=== PATIENT | male | born 1990 | race Caucasian/White ===

== ENCOUNTER 2021-04-05 14:53 | Emergency (ER) | payer BC ==
[2021-04-05 17:13] LABS: CORONAVIRUS COVID-19 NAA POSITIVE (NEGATIVE)
[2021-04-05] MEDS ORDERED: Sodium Chloride 0.9% 10 ML Syringe FLUSH PRN (17:14)
[2021-04-05] MEDS ORDERED: diphenhydrAMINE 50 MG/ML SDV IVPUSH PRN ×2 (17:51→18:23)
[2021-04-05] MEDS ORDERED: Famotidine 20 MG/2 ML SDV IVPUSH PRN ×2 (17:51→18:23)
[2021-04-05] MEDS ORDERED: EPINEPHrine 1 MG/ML SDV IM PRN ×2 (17:51→18:23)
[2021-04-05] MEDS ORDERED: methylPREDNISolone Sodium Succinate 125 MG/2 ML SDV IVPUSH PRN ×2 (17:51→18:23)
--- NOTE | 2021-04-05 17:57 | EDM.PDOC ---
ED HPI GENERAL MEDICAL PROBLEM - General Chief Complaint: Respiratory Problem Stated Complaint: COVID SYMPTOMS Time Seen by Provider: 04/05/21 16:07 Source of Information: Reports: Patient History Limitations: Reports: No Limitations - History of Present Illness INITIAL COMMENTS - FREE TEXT/NARRATIVE: 30-year-old male presents the emergency department with a 3-day history of wea kness, fatigue and dizziness as well as diarrhea. Patient is requesting to be tested for Covid. States he does have a history of hypertension. States he was a pack-a-day smoker for approximately 15 years. He then stopped smoking and has been vaping for the past 5 years. States he is otherwise healthy. [ End ] Generalized Pain Score (Numeric/FACES): 4 - Related Data Allergies Allergy/AdvReac Type Severity Reaction Status Date / Time No Known Allergies Allergy Verified 04/05/21 16:33 Home Meds: Home Meds . [No Known Home Meds] 04/05/21 [History] Past Medical History Cardiovascular History: Reports: Hypertension Social & Family History - Tobacco Use Tobacco Use Status *Q: Current Every Day Tobacco User Years of Tobacco use: 15 Packs/Tins Daily: 1 - Caffeine Use Caffeine Use: Reports: Coffee, Energy Drinks, Soda - Recreational Drug Use Recreational Drug Use: No ED ROS GENERAL - Review of Systems Review Of Systems: Comprehensive ROS is negative, except as noted in HPI. ED EXAM, GENERAL - Physical Exam Exam: See Below Exam Limited By: No Limitations General Appearance: Alert, WD/WN, No Apparent Distress Ears: Normal External Exam, Hearing Grossly Normal Nose: Normal Inspection Throat/Mouth: Normal Inspection, Normal Lips, Normal Voice, No Airway Compromise Head: Atraumatic Neck: Normal Inspection, Supple Respiratory/Chest: No Respiratory Distress, Lungs Clear, Normal Breath Sounds, No Accessory Muscle Use, Chest Non-Tender Cardiovascular: Normal Peripheral Pulses, Regular Rate, Rhythm, No Edema, No Murmur Peripheral Pulses: 2+: Radial (L), Radial (R) GI/Abdominal: Normal Bowel Sounds, Soft, Non-Tender, No Distention (Male) Exam: Deferred Rectal (Males) Exam: Deferred Back Exam: Normal Inspection Extremities: Normal Inspection, Normal Range of Motion, Non-Tender, No Pedal Edema, Normal Capillary Refill Neurological: Alert, Oriented, Normal Cognition Psychiatric: Normal Affect, Normal Mood Skin Exam: Warm, Dry, Intact, Normal Color, No Rash Lymphatic: No Adenopathy Course - Vital Signs Text/Narrative:: Physical exam is essentially unremarkable. Patient is hemodynamically stable with O2 saturations at 98% on room air. Will obtain a Covid swab. Last Recorded V/S: Last Vital Signs Temp 98.1 F 04/05/21 16:31 Pulse 89 04/05/21 16:31 Resp 20 04/05/21 16:31 BP 178/95 H 04/05/21 16:31 Pulse Ox 98 04/05/21 16:31 - Orders/Labs/Meds Orders: Active Orders 24 hr Category Date Time Status Vital Signs [RC] Q15M Care 04/05/21 17:51 Active Vital Signs [RC] Q15M Care 04/05/21 18:24 Active Chest 1V Frontal [CR] Stat Exams 04/05/21 17:14 Taken EPINEPHrine [Adrenalin] Med 04/05/21 17:51 Active 0.3 mg IM ASDIRECTED PRN EPINEPHrine [Adrenalin] Med 04/05/21 18:23 Active 0.3 mg IM ASDIRECTED PRN Famotidine [Pepcid] Med 04/05/21 17:51 Active 20 mg IVPUSH ASDIRECTED PRN Famotidine [Pepcid] Med 04/05/21 18:23 Active 20 mg IVPUSH ASDIRECTED PRN Sodium Chloride 0.9% [Saline Flush] Med 04/05/21 17:14 Active 10 ml FLUSH ASDIRECTED PRN Sodium Chloride 0.9% [Saline Flush] Med 04/05/21 18:00 Active 30 ml FLUSH ASDIRECTED Sodium Chloride 0.9% [Saline Flush] Med 04/05/21 18:30 Active 30 ml FLUSH ASDIRECTED diphenhydrAMINE [Benadryl] Med 04/05/21 17:51 Active 50 mg IVPUSH ASDIRECTED PRN diphenhydrAMINE [Benadryl] Med 04/05/21 18:23 Active 50 mg IVPUSH ASDIRECTED PRN methylPREDNISolone Sod Succ [Solu-MEDROL] Med 04/05/21 17:51 Active 125 mg IVPUSH ASDIRECTED PRN methylPREDNISolone Sod Succ [Solu-MEDROL] Med 04/05/21 18:23 Active 125 mg IVPUSH ASDIRECTED PRN Saline Lock Insert [OM.PC] Stat Ot 04/05/21 17:14 Ordered Medication Orders Diphenhydramine HCl (Diphenhydramine 50 Mg/Ml Sdv) 50 mg IVPUSH ASDIRECTED PRN PRN Reason: hypersensitivity reaction Diphenhydramine HCl (Diphenhydramine 50 Mg/Ml Sdv) 50 mg IVPUSH ASDIRECTED PRN PRN Reason: hypersensitivity reaction Epinephrine HCl (Epinephrine 1 Mg/Ml Sdv) 0.3 mg IM ASDIRECTED PRN PRN Reason: hypersensitivity reaction Epinephrine HCl (Epinephrine 1 Mg/Ml Sdv) 0.3 mg IM ASDIRECTED PRN PRN Reason: hypersensitivity reaction Famotidine (Famotidine 20 Mg/2 Ml Sdv) 20 mg IVPUSH ASDIRECTED PRN PRN Reason: hypersensitivity reaction Famotidine (Famotidine 20 Mg/2 Ml Sdv) 20 mg IVPUSH ASDIRECTED PRN PRN Reason: hypersensitivity reaction Methylprednisolone Sodium Succinate (Methylprednisolone Sodium Succinate 125 Mg/2 Ml Sdv) 125 mg IVPUSH ASDIRECTED PRN PRN Reason: hypersensitivity reaction Methylprednisolone Sodium Succinate (Methylprednisolone Sodium Succinate 125 Mg/2 Ml Sdv) 125 mg IVPUSH ASDIRECTED PRN PRN Reason: hypersensitivity reaction Sodium Chloride (Sodium Chloride 0.9% 10 Ml Syringe) 10 ml FLUSH ASDIRECTED PRN PRN Reason: Keep Vein Open Last Admin: 04/05/21 17:16 Dose: 10 ml Documented by: NELIA Sodium Chloride (Sodium Chloride 0.9% 10 Ml Syringe) 30 ml FLUSH ASDIRECTED [facility] Sodium Chloride (Sodium Chloride 0.9% 10 Ml Syringe) 30 ml FLUSH ASDIRECTED SERENA Labs: Laboratory Tests 04/05/21 04/05/21 04/05/21 Range/Units 16:25 16:44 16:44 WBC 6.50 (4.23-9.07) K/mm3 RBC 5.01 (4.63-6.08) M/mm3 Hgb 15.5 (13.7-17.5) gm/dl Hct 46.1 (40.1-51.0) % MCV 92.0 (79.0-92.2) fl MCH 30.9 (25.7-32.2) pg MCHC 33.6 (32.2-35.5) g/dl RDW Std Deviation 42.5 (35.1-43.9) fL Plt Count 242 (163-337) K/mm3 MPV 10.8 (9.4-12.3) fl Neut % (Auto) 53.5 (34.0-67.9) % Lymph % (Auto) 13.7 L (21.8-53.1) % [place] % (Auto) 31.1 H (5.3-12.2) % Eos % (Auto) 0.3 L (0.8-7.0) Baso % (Auto) 0.9 (0.1-1.2) % Neut # (Auto) 3.48 (1.78-5.38) K/mm3 Lymph # (Auto) 0.89 L (1.32-3.57) K/mm3 [place] # (Auto) 2.02 H (0.30-0.82) K/mm3 Eos # (Auto) 0.02 L (0.04-0.54) K/mm3 Baso # (Auto) 0.06 (0.01-0.08) K/mm3 Manual Slide Review D-Dimer, Quantitative 0.36 (0.19-0.50) mg/L Sodium (136-145) mEq/L Potassium (3.5-5.1) mEq/L Chloride (98-107) mEq/L Carbon Dioxide (21-32) mEq/L Anion Gap (5-15) BUN (7-18) mg/dL Creatinine (0.7-1.3) mg/dL Est Cr Clr Drug Dosing mL/min Estimated GFR (MDRD) (>60) mL/min BUN/Creatinine Ratio (14-18) Glucose (70-99) mg/dL Calcium (8.5-10.1) mg/dL Magnesium (1.8-2.4) mg/dL Total Bilirubin (0.2-1.0) mg/dL AST (15-37) U/L ALT (16-63) U/L Alkaline Phosphatase (46-116) U/L C-Reactive Protein (<1.0) mg/dL Total Protein (6.4-8.2) g/dl Albumin (3.4-5.0) g/dl Globulin gm/dL Albumin/Globulin Ratio (1-2) Influenza Type A RNA Negative (NEGATIVE) Influenza Type B RNA Negative (NEGATIVE) SARS-CoV-2 RNA (GRACIE) Positive H (NEGATIVE) 04/05/21 Range/Units 16:44 WBC (4.23-9.07) K/mm3 RBC (4.63-6.08) M/mm3 Hgb (13.7-17.5) gm/dl Hct (40.1-51.0) % MCV (79.0-92.2) fl MCH (25.7-32.2) pg MCHC (32.2-35.5) g/dl RDW Std Deviation (35.1-43.9) fL Plt Count (163-337) K/mm3 MPV (9.4-12.3) fl Neut % (Auto) (34.0-67.9) % Lymph % (Auto) (21.8-53.1) % [place] % (Auto) (5.3-12.2) % Eos % (Auto) (0.8-7.0) Baso % (Auto) (0.1-1.2) % Neut # (Auto) (1.78-5.38) K/mm3 Lymph # (Auto) (1.32-3.57) K/mm3 [place] # (Auto) (0.30-0.82) K/mm3 Eos # (Auto) (0.04-0.54) K/mm3 Baso # (Auto) (0.01-0.08) K/mm3 Manual Slide Review D-Dimer, Quantitative (0.19-0.50) mg/L Sodium 135 L (136-145) mEq/L Potassium 3.9 (3.5-5.1) mEq/L Chloride 100 (98-107) mEq/L Carbon Dioxide 26 (21-32) mEq/L Anion Gap 12.9 (5-15) BUN 10 (7-18) mg/dL Creatinine 1.0 (0.7-1.3) mg/dL Est Cr Clr Drug Dosing 116.40 mL/min Estimated GFR (MDRD) > 60 (>60) mL/min BUN/Creatinine Ratio 10.0 L (14-18) Glucose 188 H (70-99) mg/dL Calcium 8.4 L (8.5-10.1) mg/dL Magnesium 1.9 (1.8-2.4) mg/dL Total Bilirubin 0.4 (0.2-1.0) mg/dL AST 65 H (15-37) U/L ALT 112 H (16-63) U/L Alkaline Phosphatase 73 (46-116) U/L C-Reactive Protein 0.3 (<1.0) mg/dL Total Protein 8.1 (6.4-8.2) g/dl Albumin 3.7 (3.4-5.0) g/dl Globulin 4.4 gm/dL Albumin/Globulin Ratio 0.8 L (1-2) Influenza Type A RNA (NEGATIVE) Influenza Type B RNA (NEGATIVE) SARS-CoV-2 RNA (GRACIE) (NEGATIVE) Meds: Medications Generic Name Dose Route Start Last Admin Trade Name Freq PRN Reason Stop Dose Admin Diphenhydramine HCl 50 mg 04/05/21 17:51 Diphenhydramine 50 Mg/Ml Sdv IVPUSH ASDIRECTED PRN hypersensitivity reaction Diphenhydramine HCl 50 mg 04/05/21 18:23 Diphenhydramine 50 Mg/Ml Sdv IVPUSH ASDIRECTED PRN hypersensitivity reaction Epinephrine HCl 0.3 mg 04/05/21 17:51 Epinephrine 1 Mg/Ml Sdv IM ASDIRECTED PRN hypersensitivity reaction Epinephrine HCl 0.3 mg 04/05/21 18:23 Epinephrine 1 Mg/Ml Sdv IM ASDIRECTED PRN hypersensitivity reaction Famotidine 20 mg 04/05/21 17:51 Famotidine 20 Mg/2 Ml Sdv IVPUSH ASDIRECTED PRN hypersensitivity reaction Famotidine 20 mg 04/05/21 18:23 Famotidine 20 Mg/2 Ml Sdv IVPUSH ASDIRECTED PRN hypersensitivity reaction Methylprednisolone Sodium Succinate 125 mg 04/05/21 17:51 Methylprednisolone Sodium Succinate 125 Mg/2 Ml Sdv IVPUSH ASDIRECTED PRN hypersensitivity reaction Methylprednisolone Sodium Succinate 125 mg 04/05/21 18:23 Methylprednisolone Sodium Succinate 125 Mg/2 Ml Sdv IVPUSH ASDIRECTED PRN hypersensitivity reaction Sodium Chloride 10 ml 04/05/21 17:14 04/05/21 17:16 Sodium Chloride 0.9% 10 Ml Syringe FLUSH 10 ml ASDIRECTED PRN Administration Keep Vein Open Sodium Chloride 30 ml 04/05/21 18:00 Sodium Chloride 0.9% 10 Ml Syringe FLUSH ASDIRECTED SERENA Sodium Chloride 30 ml 04/05/21 18:30 Sodium Chloride 0.9% 10 Ml Syringe FLUSH ASDIRECTED [facility] Discontinued Medications Generic Name Dose Route Start Last Admin Trade Name Surya PRN Reason Stop Dose Admin CASIRIVIMAB/IMDEVIMAB 10 ml/ 110 mls @ 220 mls/hr 04/05/21 18:23 04/05/21 18:40 Sodium Chloride IV 04/05/21 18:52 220 mls/hr ONETIME ONE Administration - Radiology Interpretation Free Text/Narrative:: Nothing acute is appreciated on portable chest x-ray. - Re-Assessments/Exams Free Text/Narrative Re-Assessment/Exam: 04/05/2021 16:25 Covid test is positive will obtain lab studies and a chest x-ray. 04/05/21 17:50 Hematology is essentially unremarkable D-dimer 0.36 Sodium 135, potassium 3.9, anion gap 12.9, BUN 10, creatinine 1.0, GFR greater than 60, glucose 188, magnesium 1.9, AST 65, ALT 112, C-reactive protein 0.3, influenza a and B are negative, patient is Covid positive I spoke with the patient to provide information about Bamlanivimad for himself. I offered her the fax sheet for patients and caregivers for Bamlanivimad to read and review. I stated the therapy has been approved by an emergency use authorization process and has not fully been FDA reviewed or approved. I shared the potential risks from the therapy including risks/adverse reactions. I discussed there are other potential treatment options that are currently not FDA approved to treat COVID-19. Offered opportunity ask questions and all questions were answered. Patient voiced understanding and agreed to proceed with treatment for himself. 04/05/21 20:05 Patient has completed antibiotic treatment and has been monitored for 1 hour. He will be discharged to home. Departure - Departure Time of Disposition: 20:05 Disposition: Home, Self-Care 01 Condition: Good Clinical Impression: COVID-19 - Discharge Information Instructions: COVID-19: Quarantine vs. Isolation - [facility] (04/25/2020) Referrals: PCP,None [Primary Care Provider] - Forms: ED Department Discharge Additional Instructions: You are seen in the emergency department today and tested for Covid.. Covid test was positive. You did receive antibody treatment for Covid. As discussed, symptoms should begin to resolve in the next couple of days. You will need to continue to isolate yourself for a total of 10 days time from the initial onset of symptoms. Continue to eat small frequent meals and drink plenty of fluids. May take Tylenol 650 mg every 4 hours as needed for discomfort as well as ibuprofen 600 mg every 6-8 hours as needed for fever or discomfort. Sepsis Event Note (ED) - Focused Exam Vital Signs: Vital Signs Temp Pulse Resp BP Pulse Ox 04/05/21 16:31 98.1 F 89 20 178/95 H 98 - My Orders Last 24 Hours: My Active Orders 04/05/21 17:14 Chest 1V Frontal [CR] Stat Sodium Chloride 0.9% [Saline Flush] 10 ml FLUSH ASDIRECTED PRN Saline Lock Insert [OM.PC] Stat 04/05/21 17:51 Vital Signs [RC] Q15M EPINEPHrine [Adrenalin] 0.3 mg IM ASDIRECTED PRN Famotidine [Pepcid] 20 mg IVPUSH ASDIRECTED PRN diphenhydrAMINE [Benadryl] 50 mg IVPUSH ASDIRECTED PRN methylPREDNISolone Sod Succ [Solu-MEDROL] 125 mg IVPUSH ASDIRECTED PRN 04/05/21 18:00 Sodium Chloride 0.9% [Saline Flush] 30 ml FLUSH ASDIRECTED 04/05/21 18:23 EPINEPHrine [Adrenalin] 0.3 mg IM ASDIRECTED PRN Famotidine [Pepcid] 20 mg IVPUSH ASDIRECTED PRN diphenhydrAMINE [Benadryl] 50 mg IVPUSH ASDIRECTED PRN methylPREDNISolone Sod Succ [Solu-MEDROL] 125 mg IVPUSH ASDIRECTED PRN 04/05/21 18:24 Vital Signs [RC] Q15M 04/05/21 18:30 Sodium Chloride 0.9% [Saline Flush] 30 ml FLUSH ASDIRECTED - Assessment/Plan Last 24 Hours: My Active Orders 04/05/21 17:14 Chest 1V Frontal [CR] Stat Sodium Chloride 0.9% [Saline Flush] 10 ml FLUSH ASDIRECTED PRN Saline Lock Insert [OM.PC] Stat 04/05/21 17:51 Vital Signs [RC] Q15M EPINEPHrine [Adrenalin] 0.3 mg IM ASDIRECTED PRN Famotidine [Pepcid] 20 mg IVPUSH ASDIRECTED PRN diphenhydrAMINE [Benadryl] 50 mg IVPUSH ASDIRECTED PRN methylPREDNISolone Sod Succ [Solu-MEDROL] 125 mg IVPUSH ASDIRECTED PRN 04/05/21 18:00 Sodium Chloride 0.9% [Saline Flush] 30 ml FLUSH ASDIRECTED 04/05/21 18:23 EPINEPHrine [Adrenalin] 0.3 mg IM ASDIRECTED PRN Famotidine [Pepcid] 20 mg IVPUSH ASDIRECTED PRN diphenhydrAMINE [Benadryl] 50 mg IVPUSH ASDIRECTED PRN methylPREDNISolone Sod Succ [Solu-MEDROL] 125 mg IVPUSH ASDIRECTED PRN 04/05/21 18:24 Vital Signs [RC] Q15M 04/05/21 18:30 Sodium Chloride 0.9% [Saline Flush] 30 ml FLUSH ASDIRECTED
[2021-04-05] MEDS ORDERED: Sodium Chloride 0.9% 10 ML Syringe FLUSH SCH ×2 (18:00→18:30)
--- NOTE | 2021-04-06 08:25 | CR ---
Chest: Frontal view of the chest was obtained. Comparison: No prior chest imaging is available. Heart size and mediastinum are normal. Small nodule is noted within the left lung base. This appears fairly dense and most likely represents a small granuloma measuring 7 mm. Lungs otherwise are clear. Bony structures show nothing acute. Impression: 1. Findings suspicious for small granuloma within the left lung base. 2. Nothing acute is otherwise seen on frontal chest x-ray. Diagnostic code #2
== END 2021-04-05 20:27 | disposition home or self-care (01) ==
LOC: JD.ED 14:53
DX: U07.1 COVID-19 (principal); I10 Essential (primary) hypertension; F17.290 Nicotine dependence, other tobacco product, uncomplicated
CPT/HCPCS: 0240U; 36415; 71045; 80053; 83735; 85025; 85379; 86140; 99284; M0243; Q0243

== ENCOUNTER 2023-06-14 09:40 | Emergency (ER) | payer BC ==
[2023-06-14 11:48] LABS: BASOPHILS ABSOLUTE AUTO 0.1 K/mm3 (0.0-0.2); BASOPHILS PERCENT AUTO 0.6 % (0.0-1.0); EOSINOPHILS ABSOLUTE AUTO 0.2 K/mm3 (0.0-0.4); HEMOGLOBIN 17.5 gm/dl (14.0-18.0); IMMATURE GRAN ABSOLUTE AUTO 0.17 K/mm3 (0.00-0.05); IMMATURE GRAN PERCENT AUTO 0.9 % (0.0-0.4); LYMPHOCYTES ABSOLUTE AUTO 2.3 K/mm3 (1.0-4.8); LYMPHOCYTES PERCENT AUTO 12.7 % (24.0-44.0); MEAN CORPUSCULAR HEMOGLOBIN 31.2 pg (28.0-32.0); MEAN CORPUSCULAR VOLUME 89.1 fl (83.0-99.0); MEAN PLATELET VOLUME 9.6 fl (9.4-12.4); MONOCYTES ABSOLUTE AUTO 2.2 K/mm3 (0.0-0.8); MONOCYTES PERCENT AUTO 11.9 % (0.0-8.0); NEUTROPHILS ABSOLUTE AUTO 13.2 K/mm3 (1.8-7.7); NEUTROPHILS PERCENT AUTO 72.9 % (41.0-71.0); PLATELET COUNT,PLT 408 K/mm3 (150-400); RED BLOOD CELL COUNT 5.61 M/mm3 (4.52-5.90); WHITE BLOOD CELL COUNT,WBC 18.15 K/mm3 (3.9-11.3)
[2023-06-14] MEDS: Sodium Chloride 0.9% 10 ML Syringe FLUSH PRN (12:00)
[2023-06-14] MEDS: Iopamidol 612 MG/ML 30 ML SDV IVPUSH ONE (12:00)
[2023-06-14 12:09] LABS: A/G RATIO 0.6 (1-2); ALBUMIN 3.6 g/dl (3.4-5.0); ANION GAP 16.3 (5-15); BILIRUBIN TOTAL 0.6 mg/dL (0.2-1.0); C-REACTIVE PROTEIN 5.8 mg/dL (<1.0); CALCIUM 9.2 mg/dL (8.5-10.1); EST CRCL DRUG DOSING (CG) 126.58 mL/min; POTASSIUM,K 4.3 mEq/L (3.5-5.1); PROTEIN TOTAL,TP 9.6 g/dl (6.4-8.2)
[2023-06-14 12:13] LABS: SLIDE REVIEW ABNORMAL SMEAR
[2023-06-14] MEDS: Ampicillin/Sulbactam Na 3 GM in Sodium Chloride 0.9% 100 ML IV ONE (12:29)
[2023-06-14 13:07] LABS: LACTIC ACID 0.9 mmol/L (0.4-2.0)
[2023-06-14] MEDS: HYDROmorphone 0.5 MG/0.5 ML Syringe IVPUSH ONE (15:10)
== END 2023-06-14 15:10 ==
LOC: JD.ED 09:40
DX: J36 Peritonsillar abscess (principal); J02.0 Streptococcal pharyngitis
CPT/HCPCS: 36415; 70491; 80053; 83605; 85025; 86140; 87040; 87651; 96365; 96375; 99285; J0295; J1170; J3490; Q9967; 99284

== ENCOUNTER 2023-08-16 03:23 | Inpatient (IN) | payer BC ==
[2023-08-16] MEDS: Sodium Chloride 0.9% 1,000 ML IV ONE ×2 (03:43→05:21)
[2023-08-16] MEDS: Iopamidol 612 MG/ML 100 ML Bottle IVPUSH ONE (03:43)
[2023-08-16] MEDS: Ondansetron 4 MG/2 ML SDV IVPUSH ONE (03:44)
[2023-08-16] MEDS: Morphine 4 MG/ML Syringe IVPUSH ONE ×2 (03:45→05:21)
[2023-08-16] MEDS: Pantoprazole 40 MG Vial IVPUSH ONE (03:45)
[2023-08-16 03:52] LABS: BASOPHILS ABSOLUTE AUTO 0.1 K/mm3 (0.0-0.2); BASOPHILS PERCENT AUTO 0.4 % (0.0-1.0); EOSINOPHILS ABSOLUTE AUTO 0.1 K/mm3 (0.0-0.4); EOSINOPHILS PERCENT AUTO 0.5 % (0.0-6.0); HEMATOCRIT 46.6 % (42.0-52.0); HEMOGLOBIN 16.3 gm/dl (14.0-18.0); IMMATURE GRAN ABSOLUTE AUTO 0.07 K/mm3 (0.00-0.05); IMMATURE GRAN PERCENT AUTO 0.4 % (0.0-0.4); LYMPHOCYTES ABSOLUTE AUTO 2.1 K/mm3 (1.0-4.8); LYMPHOCYTES PERCENT AUTO 10.7 % (24.0-44.0); MEAN CORPUSCULAR HEMOGLOBIN 30.5 pg (28.0-32.0); MEAN CORPUSCULAR VOLUME 87.1 fl (83.0-99.0); MEAN PLATELET VOLUME 10.3 fl (9.4-12.4); MONOCYTES ABSOLUTE AUTO 1.7 K/mm3 (0.0-0.8); MONOCYTES PERCENT AUTO 8.6 % (0.0-8.0); NEUTROPHILS ABSOLUTE AUTO 15.8 K/mm3 (1.8-7.7); NEUTROPHILS PERCENT AUTO 79.4 % (41.0-71.0); PLATELET COUNT,PLT 377 K/mm3 (150-400); RED BLOOD CELL COUNT 5.35 M/mm3 (4.52-5.90); WHITE BLOOD CELL COUNT,WBC 19.84 K/mm3 (3.9-11.3)
[2023-08-16 04:14] LABS: A/G RATIO 0.9 (1-2); ALBUMIN 4.3 g/dl (3.4-5.0); ANION GAP 18.2 (5-15); BILIRUBIN TOTAL 0.8 mg/dL (0.2-1.0); BUN/CREATININE RATIO 11.8 (14-18); CALCIUM 9.4 mg/dL (8.5-10.1); CREATININE 1.1 mg/dL (0.7-1.3); EST CRCL DRUG DOSING (CG) 115.08 mL/min; MAGNESIUM 1.9 mg/dL (1.8-2.4); POTASSIUM,K 4.2 mEq/L (3.5-5.1)
[2023-08-16 04:16] LABS: LACTIC ACID 1.5 mmol/L (0.4-2.0)
[2023-08-16 04:28] LABS: INR 1.02; PROTHROMBIN TIME 10.9 SECONDS (9.7-12.0)
[2023-08-16 04:30] LABS: PTT,PARTIAL THROMBOPLSTIN TIME 25.6 SECONDS (21.7-31.4)
[2023-08-16] MEDS: Sodium Chloride 0.9% 10 ML Syringe FLUSH PRN (04:30)
[2023-08-16 04:34] LABS: SLIDE REVIEW ABNORMAL SMEAR
[2023-08-16] MEDS: Piperacillin/Tazobactam 4.5 GM in Sodium Chloride 0.9% 100 ML IV ONE (05:01)
[2023-08-16] MEDS: metroNIDAZOLE/Normal Saline 500 MG in Premix Bag 1 BAG IV ONE (05:04)
[2023-08-16 05:44] LABS: APPEARANCE,URINE CLEAR (Clear); BILIRUBIN,URINE NEGATIVE (Negative); COLOR,URINE LIGHT YELLOW (Yellow); GLUCOSE,URINE NEGATIVE (Negative); KETONES,URINE 3+ (Negative); LEUKOCYTE ESTERASE,URINE NEGATIVE (Negative); NITRITE,URINE NEGATIVE (Negative); OCCULT BLOOD,URINE NEGATIVE (Negative); PROTEIN,URINE NEGATIVE (Negative); UROBILINOGEN,URINE 0.2 (0.2-1.0)
[2023-08-16 06:29] LABS: BARBITURATE SCREEN,URINE NEGATIVE (CUTOFF=200); BENZODIAZEPINES SCREEN,URINE NEGATIVE (CUTOFF=150); BUPRENORPHINE SCREEN,URINE NEGATIVE (CUTOFF=10); METHADONE SCREEN, URINE NEGATIVE (CUT0FF=200); METHAMPHETAMINES SCREEN, URINE NEGATIVE (CUTOFF=500); OXYCODONE SCREEN,URINE NEGATIVE (CUT0FF=100); THC SCREEN,URINE 20 NG/ML NEGATIVE (CUTOFF=50)
[2023-08-16 06:41] LABS: AMPHETAMINES SCREEN, URINE NEGATIVE (CUTOFF=500)
[2023-08-16] MEDS: Sodium Chloride 0.9% 1,000 ML IV SCH (06:41)
[2023-08-16] MEDS ORDERED: Ondansetron 4 MG/2 ML SDV IVPUSH PRN ×2 (07:04→13:26)
[2023-08-16] MEDS ORDERED: Naloxone 0.4 MG/ML SDV IVPUSH PRN (07:04)
[2023-08-16] MEDS: Morphine 4 MG/ML Syringe IVPUSH PRN (07:22)
[2023-08-16] MEDS ORDERED: Propofol 200 MG/20 ML SDV ONE (09:30)
[2023-08-16] MEDS ORDERED: Rocuronium 50 MG/5 ML Vial ONE ×2 (09:30→11:14)
[2023-08-16] MEDS ORDERED: fentaNYL 250 MCG/5 ML SDV ONE (09:30)
[2023-08-16] MEDS ORDERED: Lidocaine 1% 5 ML VIAL ONE ×2 (09:30→12:02)
[2023-08-16] MEDS ORDERED: Midazolam 1 MG/ML 2 ML SDV ONE (09:30)
[2023-08-16] MEDS ORDERED: Ondansetron 4 MG/2 ML SDV ONE (09:30)
[2023-08-16] MEDS ORDERED: Dexamethasone 4 MG/ML 5 ML MDV ONE (10:32)
[2023-08-16] MEDS ORDERED: Succinylcholine 200 MG/10 ML MDV ONE (10:32)
[2023-08-16 11:10] LABS: BASOPHILS ABSOLUTE AUTO 0.1 K/mm3 (0.0-0.2); BASOPHILS PERCENT AUTO 0.3 % (0.0-1.0); EOSINOPHILS ABSOLUTE AUTO 0.1 K/mm3 (0.0-0.4); EOSINOPHILS PERCENT AUTO 0.3 % (0.0-6.0); HEMATOCRIT 45.9 % (42.0-52.0); HEMOGLOBIN 15.8 gm/dl (14.0-18.0); IMMATURE GRAN ABSOLUTE AUTO 0.06 K/mm3 (0.00-0.05); IMMATURE GRAN PERCENT AUTO 0.3 % (0.0-0.4); LYMPHOCYTES PERCENT AUTO 10.7 % (24.0-44.0); MEAN CORPUSCULAR HEMOGLOBIN 31.1 pg (28.0-32.0); MEAN CORPUSCULAR HGB CONC 34.4 g/dl (32.0-36.0); MEAN CORPUSCULAR VOLUME 90.4 fl (83.0-99.0); MEAN PLATELET VOLUME 10.3 fl (9.4-12.4); MONOCYTES ABSOLUTE AUTO 2.6 K/mm3 (0.0-0.8); MONOCYTES PERCENT AUTO 13.6 % (0.0-8.0); NEUTROPHILS PERCENT AUTO 74.8 % (41.0-71.0); PLATELET COUNT,PLT 283 K/mm3 (150-400); RED BLOOD CELL COUNT 5.08 M/mm3 (4.52-5.90); WHITE BLOOD CELL COUNT,WBC 18.75 K/mm3 (3.9-11.3)
[2023-08-16] MEDS: Piperacillin/Tazobactam 4.5 GM in Sodium Chloride 0.9% 100 ML IV SCH (11:18)
[2023-08-16] MEDS ORDERED: Lactated Ringers 1,000 ML ONE (11:25)
[2023-08-16] MEDS ORDERED: HYDROmorphone 0.5 MG/0.5 ML Syringe ONE (11:28)
[2023-08-16 11:31] LABS: A/G RATIO 0.8 (1-2); ALBUMIN 3.7 g/dl (3.4-5.0); ANION GAP 13.1 (5-15); BILIRUBIN TOTAL 0.9 mg/dL (0.2-1.0); CALCIUM 8.7 mg/dL (8.5-10.1); CREATININE 0.9 mg/dL (0.7-1.3); EST CRCL DRUG DOSING (CG) 140.65 mL/min; POTASSIUM,K 4.1 mEq/L (3.5-5.1); PROTEIN TOTAL,TP 8.2 g/dl (6.4-8.2)
[2023-08-16] MEDS ORDERED: Ketorolac 30 MG/ML SDV ONE (11:45)
[2023-08-16] MEDS ORDERED: Neostigmine Methylsulfate 10 MG/10 ML MDV ONE (11:53)
[2023-08-16] MEDS: EPINEPHrine 1 MG/ML SDV ONE (11:53)
[2023-08-16] MEDS: Lidocaine 1% 20 ML MDV ONE (11:53)
[2023-08-16] MEDS: Sodium Chloride 0.9% 50 ML SDV ONE (13:08)
[2023-08-16] MEDS: Ropivacaine 0.5% 5 MG/ML 30 ML SDV ONE (13:08)
[2023-08-16] MEDS ORDERED: HYDROmorphone 0.5 MG/0.5 ML Syringe IVPUSH PRN (13:26)
[2023-08-16] MEDS ORDERED: fentaNYL 100 MCG/2 ML SDV IVPUSH PRN (13:26)
[2023-08-16] MEDS: Acetaminophen/HYDROcodone 325-5 MG Tab PO STA (21:17)
== END 2023-08-16 20:00 | disposition home or self-care (01) | DRG 234 ==
LOC: JD.ED 03:23 → JD.MS 07:00
PROVIDERS: ADMIT Student in an Organized Health Care Education/Training Program; ATTEND Student in an Organized Health Care Education/Training Program
PROC: 0DTJ4ZZ Resection of Appendix, Percutaneous Endoscopic Approach (ICD-10-PCS; principal; 2023-08-16 10:00)
DX: K35.80 Unspecified acute appendicitis (principal); I10 Essential (primary) hypertension; E66.9 Obesity, unspecified; F17.290 Nicotine dependence, other tobacco product, uncomplicated; Z68.34 Body mass index [BMI] 34.0-34.9, adult
CPT/HCPCS: 00840; 36415; 74177; 74177-26; 80053; 80306; 80307; 81003; 83605; 83690; 83735; 85025; 85610; 85730; 87040; 96361; 96365; 96368; 96375; 96376; 99140; 99285; 99285-25; C9113; J0171; J0330; J1100; J1170; J1596; J1836; J1885; J2250; J2270; J2405; J2543; J2704; J2710; J2795; J3010; J3490; J7030; J7120; Q9967